=== PATIENT | female | born 1940 | race Caucasian/White ===

== ENCOUNTER 2017-11-04 14:48 | Inpatient (IN) | payer MEDICARE, OTHER ==
[2017-11-04 15:38] LABS: ADD MAN DIFF? NO
[2017-11-04 15:51] LABS: WHITE BLOOD COUNT 5.1 10^3/ul (4.8-10.8)
[2017-11-04 15:51] LABS: BASOPHIL # 0.1 10^3/ul (0.0-0.1); EOSINOPHILS % 0.6 % (0.0-7.0); HEMATOCRIT 34.8 % (37.0-47.0); HEMOGLOBIN 10.4 g/dl (12.0-16.0); LYMPHOCYTES # 0.7 10^3/ul (0.8-2.9); LYMPHOCYTES % 14.2 % (15.0-51.0); MEAN CORPUSCULAR HEMOGLOBIN 30.8 pg (29.0-33.0); MEAN CORPUSCULAR HGB CONC 29.9 g/dl (32.0-37.0); MONOCYTE # 0.5 10^3/ul (0.3-0.9); MONOCYTES % 10.3 % (0.0-11.0); NEUTROPHIL # 3.8 10^3/ul (1.6-7.5); NEUTROPHILS % 73.3 % (39.0-77.0); PLATELET COUNT 108 10^3/UL (140-415); RED BLOOD COUNT 3.38 10^6/ul (4.20-5.40); RED CELL DISTRIBUTION WIDTH 18.3 % (11.5-14.5)
[2017-11-04 15:58] LABS: ADD UMIC YES; UR ASCORBIC ACID NEGATIVE (NEGATIVE); UR BILIRUBIN (Dip) NEGATIVE (NEGATIVE); UR BLOOD (Dip) 1+ mg/dL (NEGATIVE); UR CLARITY SLIGHTLY CLOUDY (CLEAR); UR COLOR AMBER (YELLOW); UR GLUCOSE (Dip) NEGATIVE (NEGATIVE); UR KETONES (Dip) NEGATIVE (NEGATIVE); UR LEUKOCYTE ESTERASE (Dip) 1+ Leu/ul (NEGATIVE); UR NITRITE (Dip) NEGATIVE (NEGATIVE); UR RBC 0 /HPF (0-5); UR SPECIFIC GRAVITY (Dip) 1.019 (1.003-1.030); UR SQUAMOUS EPITHELIAL CELL FEW /HPF (FEW); UR TOTAL PROTEIN (Dip) 1+ mg/dl (NEGATIVE); UR TRANSITIONAL EPI CELL FEW /HPF (NONE SEEN); UR UROBILINOGEN (Dip) NEGATIVE (NEGATIVE); UR WBC 3 /HPF (0-5)
[2017-11-04 16:03] LABS: POSITIVE DIFF @See below
[2017-11-04 16:05] LABS: INR 1.26; PT RATIO 1.3
[2017-11-04 16:11] LABS: ALBUMIN 3.8 g/dl (3.3-4.9); ALKALINE PHOSPHATASE 66 IU/L (42-121); ANION GAP 15 (8-16); ASPARTATE AMINO TRANSFERASE 27 IU/L (15-46); BILIRUBIN,INDIRECT 0.6 mg/dl (0-1.1); BILIRUBIN,TOTAL 0.6 mg/dl (0.2-1.3); BLOOD UREA NITROGEN 30 mg/dl (7-20); CALCIUM 8.6 mg/dl (8.4-10.2); CARBON DIOXIDE 23 mmol/L (21-31); CHLORIDE 102 mmol/L (97-110); CREATININE 4.73 mg/dl (0.44-1.00); LIPASE 144 U/L (23-300); POTASSIUM 5.4 mmol/L (3.5-5.1); SODIUM 135 mmol/L (135-144)
[2017-11-04] MEDS: SOD CHLORIDE 0.9% 500 ML IV (16:12)
[2017-11-04 16:13] LABS: AADO2 Arterial 92.3 mmHg (7.0-24.0); Allen Test ACCEPTAB; Arterial Base Excess -1.3 mmol/L (-3.0-3); Arterial Blood Gas Oxygen Sat 90.7 mmHG (95.0-100.0); Arterial COHb 1.8 % (0.0-3.0); Arterial Fraction of Oxyhgb 88.9 % (93.0-99.0); Arterial HCO3 23.6 mmol/L (22.0-26.0); Arterial MetHb 0.2 % (0.0-1.5); Arterial Total Hemglobin 11.3 g/dl (12.0-18.0); Site Left Radial
[2017-11-04 16:16] LABS: TOTAL PROTEIN 8.5 g/dl (6.1-8.1)
[2017-11-04 16:19] LABS: ALANINE AMINOTRANSFERASE < 6 IU/L (13-69); GLUCOSE 38 mg/dl (70-220)
[2017-11-04] MEDS ORDERED: DEXTROSE 50% 50 ML SYRINGE ×2 (16:22)
[2017-11-04 16:23] LABS: TROPONIN-I 0.028 ng/ml (0.000-0.120)
[2017-11-04] MEDS: CEFTRIAXONE 1 GM/50 ML (PMX) 50 ML IVPB (16:30)
[2017-11-04] MEDS: DEXTROSE 50% 50 ML SYRINGE IV ×2 (17:00→17:05)
[2017-11-04] MEDS: SOD CHLORIDE 0.9% 1,000 ML IV (19:04)
[2017-11-04] MEDS ORDERED: MAGNESIUM HYDROXIDE 30ML CUP PO (19:30)
[2017-11-04] MEDS ORDERED: hydrALAzine 20 MG INJ IV (19:30)
[2017-11-04] MEDS ORDERED: DOCUSATE SODIUM 100 MG CAP PO (19:30)
[2017-11-04] MEDS ORDERED: NACL 0.9% 3 ML SYG IV (19:30)
[2017-11-04] MEDS: INSULIN ASPART [NOVOLOG] 3 ML PEN SC (21:00)
[2017-11-05] MEDS: INSULIN ASPART [NOVOLOG] 3 ML PEN SC ×5 (01:00→21:00)
[2017-11-05] MEDS: ACCU-CHEK XX (02:00)
[2017-11-05] MEDS ORDERED: PENDING SANTYL ORDER FOR WOUND CARE XX (05:00)
[2017-11-05 06:02] LABS: ADD MAN DIFF? NO
[2017-11-05 06:07] LABS: ABNORMAL IP MESSAGE 1; BASOPHILS % 0.9 % (0.0-2.0); EOSINOPHILS # 0.1 10^3/ul (0.0-0.5); EOSINOPHILS % 1.8 % (0.0-7.0); HEMATOCRIT 31.6 % (37.0-47.0); HEMOGLOBIN 9.5 g/dl (12.0-16.0); LYMPHOCYTES % 21.1 % (15.0-51.0); MEAN CORPUSCULAR HEMOGLOBIN 30.8 pg (29.0-33.0); MEAN CORPUSCULAR HGB CONC 30.1 g/dl (32.0-37.0); MEAN CORPUSCULAR VOLUME 102.6 fl (82.0-101.0); MEAN PLATELET VOLUME 11.4 fl (7.4-10.4); MONOCYTE # 0.6 10^3/ul (0.3-0.9); MONOCYTES % 12.4 % (0.0-11.0); NEUTROPHIL # 2.9 10^3/ul (1.6-7.5); NEUTROPHILS % 63.6 % (39.0-77.0); PLATELET COUNT 99 10^3/UL (140-415); RED BLOOD COUNT 3.08 10^6/ul (4.20-5.40); RED CELL DISTRIBUTION WIDTH 17.9 % (11.5-14.5)
[2017-11-05 06:07] LABS: WHITE BLOOD COUNT 4.5 10^3/ul (4.8-10.8)
[2017-11-05 06:20] LABS: POSITIVE DIFF @See below
[2017-11-05 06:46] LABS: ANION GAP 18 (8-16); BLOOD UREA NITROGEN 34 mg/dl (7-20); CALCIUM 8.4 mg/dl (8.4-10.2); CARBON DIOXIDE 21 mmol/L (21-31); CHLORIDE 103 mmol/L (97-110); CREATININE 5.51 mg/dl (0.44-1.00); GLUCOSE 96 mg/dl (70-220); MAGNESIUM 2.4 mg/dl (1.7-2.5); PHOSPHORUS 7.9 mg/dl (2.5-4.9); POTASSIUM 4.7 mmol/L (3.5-5.1); SODIUM 137 mmol/L (135-144)
[2017-11-05 07:45] LABS: FREE THYROXINE INDEX (Calc) 2.87 ug/ml (0.65-3.89); T3 UPTAKE 48.7 % (23.5-40.5); T4 (THYROXINE) 5.9 ug/dl (5.5-11.0)
[2017-11-05] MEDS: RANOLAZINE (SR) 500 MG TAB PO ×2 (09:45→21:12)
[2017-11-05] MEDS: SPIRONOLACTONE 25 MG TAB PO (10:35)
[2017-11-05] MEDS: NIFEdipine (XL) 30 MG TAB PO (10:36)
[2017-11-05 13:36] LABS: MODE ROOM AIR
[2017-11-05 13:55] LABS: ADD MAN DIFF? NO
[2017-11-05 14:00] LABS: ABNORMAL IP MESSAGE 1; BASOPHIL # 0.1 10^3/ul (0.0-0.1); BASOPHILS % 1.2 % (0.0-2.0); EOSINOPHILS # 0.1 10^3/ul (0.0-0.5); EOSINOPHILS % 1.7 % (0.0-7.0); HEMATOCRIT 32.3 % (37.0-47.0); HEMOGLOBIN 9.6 g/dl (12.0-16.0); LYMPHOCYTES % 23.6 % (15.0-51.0); MEAN CORPUSCULAR HEMOGLOBIN 31.2 pg (29.0-33.0); MEAN CORPUSCULAR HGB CONC 29.7 g/dl (32.0-37.0); MEAN CORPUSCULAR VOLUME 104.9 fl (82.0-101.0); MEAN PLATELET VOLUME 11.5 fl (7.4-10.4); MONOCYTE # 0.6 10^3/ul (0.3-0.9); NEUTROPHIL # 2.6 10^3/ul (1.6-7.5); PLATELET COUNT 99 10^3/UL (140-415); RED BLOOD COUNT 3.08 10^6/ul (4.20-5.40); RED CELL DISTRIBUTION WIDTH 17.6 % (11.5-14.5)
[2017-11-05 14:00] LABS: WHITE BLOOD COUNT 4.2 10^3/ul (4.8-10.8)
[2017-11-05 14:01] LABS: POSITIVE DIFF @See below
[2017-11-05] MEDS: PIPER-TAZO 2.25 GM (PMX) 50 ML IVPB ×2 (15:02→21:36)
[2017-11-05] MEDS: HEPARIN 5,000 UNIT/0.5 ML VIAL SC ×2 (15:10→21:00)
[2017-11-05] MEDS ORDERED: CEFTRIAXONE 1 GM/50 ML (PMX) 50 ML IVPB (16:30)
[2017-11-05] MEDS: SEVELAMER CARBONATE 800 MG TABLET PO (18:00)
[2017-11-05] MEDS: EPOETIN 10000 UNITS/1 ML INJ (ESRD) SC (18:01)
[2017-11-05 20:13] LABS: HEPATITIS B SURFACE ANTIGEN NEGATIVE (NEGATIVE)
[2017-11-05] MEDS: ATORVASTATIN 10 MG TAB PO (21:13)
[2017-11-05 22:11] LABS: HEPATITIS B SURFACE ANTIBODY NEGATIVE (NEGATIVE)
[2017-11-06] MEDS ORDERED: ACCU-CHEK XX (02:00)
[2017-11-06] MEDS: ACCU-CHEK XX (02:00)
[2017-11-06] MEDS: PIPER-TAZO 2.25 GM (PMX) 50 ML IVPB ×3 (05:38→21:03)
[2017-11-06] MEDS: ALBUMIN HUMAN 25% 100 ML IV (06:42)
[2017-11-06] MEDS: INSULIN ASPART [NOVOLOG] 3 ML PEN SC ×4 (08:00→21:13)
[2017-11-06] MEDS: HEPARIN 1000 UNITS/ML 10 ML INJ CATHETER (09:30)
[2017-11-06] MEDS: SEVELAMER CARBONATE 800 MG TABLET PO ×3 (10:44→18:00)
[2017-11-06] MEDS: NIFEdipine (XL) 30 MG TAB PO (10:44)
[2017-11-06] MEDS: RANOLAZINE (SR) 500 MG TAB PO ×2 (10:44→21:03)
[2017-11-06] MEDS: SPIRONOLACTONE 25 MG TAB PO (10:44)
[2017-11-06] MEDS: HEPARIN 5,000 UNIT/0.5 ML VIAL SC ×2 (10:49→21:07)
[2017-11-06 12:40] LABS: ANION GAP 15 (8-16); BLOOD UREA NITROGEN 26 mg/dl (7-20); CARBON DIOXIDE 24 mmol/L (21-31); CHLORIDE 102 mmol/L (97-110); GLUCOSE 171 mg/dl (70-220); POTASSIUM 4.4 mmol/L (3.5-5.1); SODIUM 137 mmol/L (135-144)
[2017-11-06] MEDS ORDERED: PIPER-TAZO 2.25 GM (PMX) 50 ML IVPB (14:00)
[2017-11-06] MEDS: COLLAGENASE 5 GM (UD JAR) TOP (19:51)
[2017-11-06] MEDS: ATORVASTATIN 10 MG TAB PO (21:04)
[2017-11-07] MEDS: ACCU-CHEK XX (02:00)
[2017-11-07] MEDS: PIPER-TAZO 2.25 GM (PMX) 50 ML IVPB ×2 (05:18→13:27)
[2017-11-07 05:55] LABS: ADD MAN DIFF? NO
[2017-11-07 05:57] LABS: WHITE BLOOD COUNT 3.4 10^3/ul (4.8-10.8)
[2017-11-07 05:57] LABS: ABNORMAL IP MESSAGE 1; BASOPHILS % 0.9 % (0.0-2.0); EOSINOPHILS # 0.1 10^3/ul (0.0-0.5); EOSINOPHILS % 2.7 % (0.0-7.0); HEMATOCRIT 33.6 % (37.0-47.0); HEMOGLOBIN 10.1 g/dl (12.0-16.0); LYMPHOCYTES # 0.8 10^3/ul (0.8-2.9); LYMPHOCYTES % 22.9 % (15.0-51.0); MEAN CORPUSCULAR HEMOGLOBIN 31.6 pg (29.0-33.0); MEAN CORPUSCULAR HGB CONC 30.1 g/dl (32.0-37.0); MEAN PLATELET VOLUME 11.2 fl (7.4-10.4); MONOCYTE # 0.4 10^3/ul (0.3-0.9); MONOCYTES % 11.9 % (0.0-11.0); NEUTROPHILS % 60.7 % (39.0-77.0); PLATELET COUNT 76 10^3/UL (140-415); RED CELL DISTRIBUTION WIDTH 16.7 % (11.5-14.5)
[2017-11-07 06:03] LABS: POSITIVE DIFF @See below
[2017-11-07 06:28] LABS: ANION GAP 15 (8-16); BLOOD UREA NITROGEN 32 mg/dl (7-20); CALCIUM 8.1 mg/dl (8.4-10.2); CARBON DIOXIDE 25 mmol/L (21-31); CHLORIDE 101 mmol/L (97-110); CREATININE 5.09 mg/dl (0.44-1.00); GLUCOSE 136 mg/dl (70-220); POTASSIUM 5.3 mmol/L (3.5-5.1); SODIUM 136 mmol/L (135-144)
[2017-11-07] MEDS: INSULIN ASPART [NOVOLOG] 3 ML PEN SC ×4 (08:00→21:00)
[2017-11-07] MEDS: SPIRONOLACTONE 25 MG TAB PO (08:50)
[2017-11-07] MEDS: RANOLAZINE (SR) 500 MG TAB PO ×2 (08:50→21:06)
[2017-11-07] MEDS: COLLAGENASE 5 GM (UD JAR) TOP (08:57)
[2017-11-07] MEDS: HEPARIN 5,000 UNIT/0.5 ML VIAL SC ×2 (08:57→21:14)
[2017-11-07] MEDS: SEVELAMER CARBONATE 800 MG TABLET PO ×3 (09:18→18:40)
[2017-11-07] MEDS ORDERED: GLUCAGON 1 MG INJ IM (17:00)
[2017-11-07] MEDS ORDERED: GLUCOSE GEL 15 GRAM TUBE BUCCAL (17:00)
[2017-11-07] MEDS ORDERED: GLUCOSE GEL 15 GRAM TUBE PO ×2 (17:00)
[2017-11-07] MEDS ORDERED: DEXTROSE 50% 50 ML SYRINGE IV ×2 (17:00)
[2017-11-07] MEDS: EPOETIN 10000 UNITS/1 ML INJ (ESRD) SC (18:38)
[2017-11-07] MEDS: ATORVASTATIN 10 MG TAB PO (21:06)
[2017-11-07] MEDS: HYDROCODONE/APAP (5/325) TAB PO (21:08)
[2017-11-08] MEDS: PIPER-TAZO 2.25 GM (PMX) 50 ML IVPB ×4 (01:10→21:51)
[2017-11-08] MEDS: ACCU-CHEK XX ×2 (02:00→21:52)
[2017-11-08] MEDS: INSULIN ASPART [NOVOLOG] 3 ML PEN SC ×4 (08:00→21:00)
[2017-11-08] MEDS: RANOLAZINE (SR) 500 MG TAB PO ×2 (09:00→21:46)
[2017-11-08] MEDS: COLLAGENASE 5 GM (UD JAR) TOP (09:00)
[2017-11-08] MEDS: SEVELAMER CARBONATE 800 MG TABLET PO ×3 (09:01→18:00)
[2017-11-08] MEDS: SPIRONOLACTONE 25 MG TAB PO (09:29)
[2017-11-08] MEDS: HEPARIN 5,000 UNIT/0.5 ML VIAL SC (09:38)
[2017-11-08] MEDS: ATORVASTATIN 10 MG TAB PO (21:46)
[2017-11-09] MEDS: HYDROCODONE/APAP (5/325) TAB PO ×3 (02:42→21:25)
[2017-11-09 05:52] LABS: ADD MAN DIFF? NO
[2017-11-09 05:58] LABS: WHITE BLOOD COUNT 3.8 10^3/ul (4.8-10.8)
[2017-11-09 05:58] LABS: ABNORMAL IP MESSAGE 1; BASOPHILS % 0.8 % (0.0-2.0); EOSINOPHILS # 0.1 10^3/ul (0.0-0.5); EOSINOPHILS % 2.4 % (0.0-7.0); HEMATOCRIT 33.1 % (37.0-47.0); HEMOGLOBIN 10.1 g/dl (12.0-16.0); LYMPHOCYTES # 0.8 10^3/ul (0.8-2.9); LYMPHOCYTES % 19.7 % (15.0-51.0); MEAN CORPUSCULAR HEMOGLOBIN 31.6 pg (29.0-33.0); MEAN CORPUSCULAR HGB CONC 30.5 g/dl (32.0-37.0); MEAN CORPUSCULAR VOLUME 103.4 fl (82.0-101.0); MONOCYTE # 0.4 10^3/ul (0.3-0.9); MONOCYTES % 10.2 % (0.0-11.0); NEUTROPHIL # 2.5 10^3/ul (1.6-7.5); NEUTROPHILS % 66.6 % (39.0-77.0); RED CELL DISTRIBUTION WIDTH 15.7 % (11.5-14.5)
[2017-11-09] MEDS: PIPER-TAZO 2.25 GM (PMX) 50 ML IVPB ×3 (06:05→21:49)
[2017-11-09 06:08] LABS: INR 1.18; PROTIME 15.2 Sec (11.9-14.9); PT RATIO 1.2
[2017-11-09 06:09] LABS: PARTIAL THROMBOPLASTIN TIME 32.3 Sec (25.0-35.0)
[2017-11-09 06:22] LABS: ALANINE AMINOTRANSFERASE 8 IU/L (13-69); ALBUMIN 3.5 g/dl (3.3-4.9); ALBUMIN/GLOBULIN RATIO 0.83; ALKALINE PHOSPHATASE 48 IU/L (42-121); ANION GAP 16 (8-16); ASPARTATE AMINO TRANSFERASE 14 IU/L (15-46); BILIRUBIN,INDIRECT 0.5 mg/dl (0-1.1); BILIRUBIN,TOTAL 0.5 mg/dl (0.2-1.3); BLOOD UREA NITROGEN 31 mg/dl (7-20); CALCIUM 8.4 mg/dl (8.4-10.2); CARBON DIOXIDE 26 mmol/L (21-31); CHLORIDE 97 mmol/L (97-110); CREATININE 4.92 mg/dl (0.44-1.00); GLUCOSE 123 mg/dl (70-220); POSITIVE DIFF @See below; POTASSIUM 4.6 mmol/L (3.5-5.1); SODIUM 134 mmol/L (135-144); TOTAL PROTEIN 7.7 g/dl (6.1-8.1)
[2017-11-09 06:23] LABS: PLATELET COUNT 68 10^3/UL (140-415)
[2017-11-09] MEDS: INSULIN ASPART [NOVOLOG] 3 ML PEN SC ×4 (08:00→21:00)
[2017-11-09] MEDS: COLLAGENASE 5 GM (UD JAR) TOP (08:42)
[2017-11-09] MEDS: SEVELAMER CARBONATE 800 MG TABLET PO ×3 (08:42→18:00)
[2017-11-09] MEDS: SPIRONOLACTONE 25 MG TAB PO (08:42)
[2017-11-09] MEDS: RANOLAZINE (SR) 500 MG TAB PO ×2 (08:42→21:23)
[2017-11-09] MEDS: HEPARIN 1000 UNITS/ML 10 ML INJ CATHETER (21:00)
[2017-11-09] MEDS: ATORVASTATIN 10 MG TAB PO (21:23)
[2017-11-09] MEDS: LORAZEPAM 2 MG INJ IV (21:25)
[2017-11-09] MEDS: ACCU-CHEK XX (21:49)
[2017-11-10] MEDS: PIPER-TAZO 2.25 GM (PMX) 50 ML IVPB ×2 (06:25→13:18)
[2017-11-10] MEDS: INSULIN ASPART [NOVOLOG] 3 ML PEN SC ×4 (08:00→21:00)
[2017-11-10] MEDS: SEVELAMER CARBONATE 800 MG TABLET PO ×3 (08:14→18:15)
[2017-11-10] MEDS: RANOLAZINE (SR) 500 MG TAB PO ×2 (09:36→21:00)
[2017-11-10] MEDS: COLLAGENASE 5 GM (UD JAR) TOP (09:36)
[2017-11-10 13:14] LABS: ADD MAN DIFF? NO
[2017-11-10 13:16] LABS: WHITE BLOOD COUNT 3.4 10^3/ul (4.8-10.8)
[2017-11-10 13:16] LABS: ABNORMAL IP MESSAGE 1; BASOPHILS % 0.9 % (0.0-2.0); EOSINOPHILS # 0.1 10^3/ul (0.0-0.5); EOSINOPHILS % 2.4 % (0.0-7.0); HEMATOCRIT 33.9 % (37.0-47.0); HEMOGLOBIN 10.2 g/dl (12.0-16.0); LYMPHOCYTES # 0.6 10^3/ul (0.8-2.9); LYMPHOCYTES % 17.6 % (15.0-51.0); MEAN CORPUSCULAR HEMOGLOBIN 30.9 pg (29.0-33.0); MEAN CORPUSCULAR HGB CONC 30.1 g/dl (32.0-37.0); MEAN CORPUSCULAR VOLUME 102.7 fl (82.0-101.0); MEAN PLATELET VOLUME 11.6 fl (7.4-10.4); MONOCYTE # 0.4 10^3/ul (0.3-0.9); MONOCYTES % 10.6 % (0.0-11.0); NEUTROPHIL # 2.3 10^3/ul (1.6-7.5); NEUTROPHILS % 67.9 % (39.0-77.0); PLATELET COUNT 66 10^3/UL (140-415); RED CELL DISTRIBUTION WIDTH 15.9 % (11.5-14.5)
[2017-11-10 13:30] LABS: POSITIVE DIFF @See below
[2017-11-10 13:36] LABS: INR 1.19; PROTIME 15.3 Sec (11.9-14.9); PT RATIO 1.2
[2017-11-10 13:40] LABS: CHOL/HDL RATIO 2.6 RATIO; CHOLESTEROL 89 mg/dl (100-200); HDL CHOLESTEROL 33 mg/dl (33-92); LDL CHOLESTEROL,CALCULATED 35 mg/dl; MAGNESIUM 2.3 mg/dl (1.7-2.5); TRIGLYCERIDES 107 mg/dl (0-149)
[2017-11-10 13:40] LABS: PHOSPHORUS 5.3 mg/dl (2.5-4.9)
[2017-11-10 13:41] LABS: ALANINE AMINOTRANSFERASE 7 IU/L (13-69); ALBUMIN 3.8 g/dl (3.3-4.9); ALBUMIN/GLOBULIN RATIO 0.82; ALKALINE PHOSPHATASE 51 IU/L (42-121); ANION GAP 16 (8-16); ASPARTATE AMINO TRANSFERASE 17 IU/L (15-46); BILIRUBIN,INDIRECT 0.6 mg/dl (0-1.1); BILIRUBIN,TOTAL 0.6 mg/dl (0.2-1.3); BLOOD UREA NITROGEN 19 mg/dl (7-20); CALCIUM 8.7 mg/dl (8.4-10.2); CARBON DIOXIDE 25 mmol/L (21-31); CHLORIDE 98 mmol/L (97-110); CREATININE 3.67 mg/dl (0.44-1.00); GLUCOSE 146 mg/dl (70-220); POTASSIUM 4.4 mmol/L (3.5-5.1); SODIUM 135 mmol/L (135-144); TOTAL PROTEIN 8.4 g/dl (6.1-8.1)
[2017-11-10 14:15] LABS: FREE T4 (FREE THYROXINE) 1.58 ng/dl (0.78-2.44)
[2017-11-10] MEDS: EPOETIN 10000 UNITS/1 ML INJ (ESRD) SC (18:16)
[2017-11-10] MEDS: PROPRANOLOL 20 MG TAB PO (21:00)
[2017-11-10] MEDS: ATORVASTATIN 10 MG TAB PO (21:00)
[2017-11-10] MEDS: ONDANSETRON 4 MG INJ IV (21:49)
[2017-11-11] MEDS: ACCU-CHEK XX (01:10)
[2017-11-11] MEDS: LEVOTHYROXINE 25 MCG TAB PO (05:30)
[2017-11-11 05:47] LABS: ADD MAN DIFF? NO
[2017-11-11 05:59] LABS: ABNORMAL IP MESSAGE 1; BASOPHILS % 0.8 % (0.0-2.0); EOSINOPHILS # 0.1 10^3/ul (0.0-0.5); EOSINOPHILS % 2.1 % (0.0-7.0); HEMATOCRIT 34.9 % (37.0-47.0); HEMOGLOBIN 10.5 g/dl (12.0-16.0); LYMPHOCYTES # 0.9 10^3/ul (0.8-2.9); LYMPHOCYTES % 18.4 % (15.0-51.0); MEAN CORPUSCULAR HEMOGLOBIN 31.3 pg (29.0-33.0); MEAN CORPUSCULAR HGB CONC 30.1 g/dl (32.0-37.0); MEAN CORPUSCULAR VOLUME 103.9 fl (82.0-101.0); MEAN PLATELET VOLUME 11.5 fl (7.4-10.4); MONOCYTE # 0.6 10^3/ul (0.3-0.9); MONOCYTES % 11.6 % (0.0-11.0); NEUTROPHIL # 3.2 10^3/ul (1.6-7.5); NEUTROPHILS % 66.7 % (39.0-77.0); RED BLOOD COUNT 3.36 10^6/ul (4.20-5.40); RED CELL DISTRIBUTION WIDTH 15.9 % (11.5-14.5)
[2017-11-11 05:59] LABS: WHITE BLOOD COUNT 4.7 10^3/ul (4.8-10.8)
[2017-11-11 06:12] LABS: PLATELET COUNT 84 10^3/UL (140-415); POSITIVE DIFF @See below
[2017-11-11 06:20] LABS: ANION GAP 16 (8-16); BLOOD UREA NITROGEN 25 mg/dl (7-20); CALCIUM 8.6 mg/dl (8.4-10.2); CARBON DIOXIDE 26 mmol/L (21-31); CHLORIDE 99 mmol/L (97-110); CREATININE 4.13 mg/dl (0.44-1.00); GLUCOSE 135 mg/dl (70-220); POTASSIUM 4.5 mmol/L (3.5-5.1); SODIUM 136 mmol/L (135-144)
[2017-11-11 06:36] LABS: MAGNESIUM 2.4 mg/dl (1.7-2.5)
[2017-11-11 06:36] LABS: PHOSPHORUS 6.4 mg/dl (2.5-4.9)
[2017-11-11] MEDS: INSULIN ASPART [NOVOLOG] 3 ML PEN SC ×4 (08:00→21:00)
[2017-11-11] MEDS: PROPRANOLOL 20 MG TAB PO ×2 (09:00→21:26)
[2017-11-11] MEDS: SEVELAMER CARBONATE 800 MG TABLET PO ×3 (10:02→18:03)
[2017-11-11] MEDS: RANOLAZINE (SR) 500 MG TAB PO ×2 (10:02→21:24)
[2017-11-11] MEDS: COLLAGENASE 5 GM (UD JAR) TOP (10:03)
[2017-11-11] MEDS: HEPARIN 1000 UNITS/ML 10 ML INJ CATHETER (19:13)
[2017-11-11] MEDS: ATORVASTATIN 10 MG TAB PO (21:24)
[2017-11-12] MEDS: ACCU-CHEK XX (02:00)
[2017-11-12] MEDS: LEVOTHYROXINE 25 MCG TAB PO (06:21)
[2017-11-12] MEDS: HYDROCODONE/APAP (5/325) TAB PO (06:23)
[2017-11-12 07:56] LABS: ADD MAN DIFF? NO
[2017-11-12 08:02] LABS: WHITE BLOOD COUNT 4.1 10^3/ul (4.8-10.8)
[2017-11-12 08:02] LABS: ABNORMAL IP MESSAGE 1; EOSINOPHILS # 0.1 10^3/ul (0.0-0.5); EOSINOPHILS % 1.9 % (0.0-7.0); HEMATOCRIT 32.9 % (37.0-47.0); HEMOGLOBIN 9.9 g/dl (12.0-16.0); LYMPHOCYTES # 0.7 10^3/ul (0.8-2.9); LYMPHOCYTES % 17.7 % (15.0-51.0); MEAN CORPUSCULAR HEMOGLOBIN 30.7 pg (29.0-33.0); MEAN CORPUSCULAR HGB CONC 30.1 g/dl (32.0-37.0); MEAN CORPUSCULAR VOLUME 102.2 fl (82.0-101.0); MEAN PLATELET VOLUME 11.9 fl (7.4-10.4); MONOCYTE # 0.5 10^3/ul (0.3-0.9); MONOCYTES % 11.9 % (0.0-11.0); NEUTROPHIL # 2.8 10^3/ul (1.6-7.5); PLATELET COUNT 62 10^3/UL (140-415); RED BLOOD COUNT 3.22 10^6/ul (4.20-5.40); RED CELL DISTRIBUTION WIDTH 15.6 % (11.5-14.5)
[2017-11-12 08:13] LABS: POSITIVE DIFF @See below
[2017-11-12 08:20] LABS: ALBUMIN 3.5 g/dl (3.3-4.9); ALBUMIN/GLOBULIN RATIO 0.79; ALKALINE PHOSPHATASE 53 IU/L (42-121); ANION GAP 14 (8-16); ASPARTATE AMINO TRANSFERASE 20 IU/L (15-46); BILIRUBIN,INDIRECT 0.4 mg/dl (0-1.1); BILIRUBIN,TOTAL 0.4 mg/dl (0.2-1.3); BLOOD UREA NITROGEN 18 mg/dl (7-20); CALCIUM 8.3 mg/dl (8.4-10.2); CARBON DIOXIDE 26 mmol/L (21-31); CHLORIDE 100 mmol/L (97-110); CREATININE 3.15 mg/dl (0.44-1.00); GLUCOSE 143 mg/dl (70-220); POTASSIUM 4.2 mmol/L (3.5-5.1); SODIUM 136 mmol/L (135-144); TOTAL PROTEIN 7.9 g/dl (6.1-8.1)
[2017-11-12 08:25] LABS: ALANINE AMINOTRANSFERASE < 6 IU/L (13-69)
[2017-11-12] MEDS: PROPRANOLOL 20 MG TAB PO ×2 (09:26→21:19)
[2017-11-12] MEDS: RANOLAZINE (SR) 500 MG TAB PO ×2 (09:26→22:43)
[2017-11-12] MEDS: SEVELAMER CARBONATE 800 MG TABLET PO ×3 (09:26→17:40)
[2017-11-12] MEDS: INSULIN ASPART [NOVOLOG] 3 ML PEN SC ×4 (09:34→21:00)
[2017-11-12 12:53] LABS: MAGNESIUM 2.3 mg/dl (1.7-2.5)
[2017-11-12 12:53] LABS: PHOSPHORUS 4.6 mg/dl (2.5-4.9)
[2017-11-12] MEDS: COLLAGENASE 5 GM (UD JAR) TOP (14:37)
[2017-11-12] MEDS: ATORVASTATIN 10 MG TAB PO (21:19)
[2017-11-12] MEDS: EPOETIN 10000 UNITS/1 ML INJ (ESRD) SC (21:20)
[2017-11-13] MEDS: ACCU-CHEK XX (02:00)
[2017-11-13] MEDS: LEVOTHYROXINE 25 MCG TAB PO (06:10)
[2017-11-13 06:39] LABS: ADD MAN DIFF? NO
[2017-11-13 06:45] LABS: WHITE BLOOD COUNT 4.3 10^3/ul (4.8-10.8)
[2017-11-13 06:45] LABS: ABNORMAL IP MESSAGE 1; BASOPHIL # 0.1 10^3/ul (0.0-0.1); BASOPHILS % 1.2 % (0.0-2.0); EOSINOPHILS # 0.1 10^3/ul (0.0-0.5); EOSINOPHILS % 2.8 % (0.0-7.0); HEMATOCRIT 33.9 % (37.0-47.0); HEMOGLOBIN 10.2 g/dl (12.0-16.0); LYMPHOCYTES # 0.9 10^3/ul (0.8-2.9); LYMPHOCYTES % 22.1 % (15.0-51.0); MEAN CORPUSCULAR HEMOGLOBIN 30.4 pg (29.0-33.0); MEAN CORPUSCULAR HGB CONC 30.1 g/dl (32.0-37.0); MEAN CORPUSCULAR VOLUME 100.9 fl (82.0-101.0); MEAN PLATELET VOLUME 11.6 fl (7.4-10.4); MONOCYTE # 0.5 10^3/ul (0.3-0.9); MONOCYTES % 11.5 % (0.0-11.0); NEUTROPHIL # 2.6 10^3/ul (1.6-7.5); NEUTROPHILS % 61.9 % (39.0-77.0); RED BLOOD COUNT 3.36 10^6/ul (4.20-5.40); RED CELL DISTRIBUTION WIDTH 15.7 % (11.5-14.5)
[2017-11-13 07:09] LABS: PHOSPHORUS 5.4 mg/dl (2.5-4.9)
[2017-11-13 07:09] LABS: MAGNESIUM 2.4 mg/dl (1.7-2.5)
[2017-11-13 07:10] LABS: PLATELET COUNT 87 10^3/UL (140-415); POSITIVE DIFF @See below
[2017-11-13 07:23] LABS: ANION GAP 15 (8-16); BLOOD UREA NITROGEN 24 mg/dl (7-20); CALCIUM 8.6 mg/dl (8.4-10.2); CARBON DIOXIDE 27 mmol/L (21-31); CHLORIDE 97 mmol/L (97-110); CREATININE 4.04 mg/dl (0.44-1.00); GLUCOSE 138 mg/dl (70-220); POTASSIUM 4.1 mmol/L (3.5-5.1); SODIUM 135 mmol/L (135-144)
[2017-11-13] MEDS: INSULIN ASPART [NOVOLOG] 3 ML PEN SC ×4 (08:49→20:21)
[2017-11-13] MEDS: COLLAGENASE 5 GM (UD JAR) TOP (08:50)
[2017-11-13] MEDS: RANOLAZINE (SR) 500 MG TAB PO ×2 (08:50→20:26)
[2017-11-13] MEDS: SEVELAMER CARBONATE 800 MG TABLET PO ×3 (08:50→18:00)
[2017-11-13] MEDS: PROPRANOLOL 20 MG TAB PO ×2 (09:00→20:28)
[2017-11-13] MEDS ORDERED: HEPARIN 1000 UNITS/ML 10 ML INJ CATHETER ×2 (16:30→17:00)
[2017-11-13] MEDS: ATORVASTATIN 10 MG TAB PO (20:26)
== END 2017-11-13 21:30 | disposition home health service (06) | DRG 917 ==
LOC: 5EC 11-12 06:42 → E/R 14:48 → 2NE 17:06
PROC: 5A1D70Z Performance of Urinary Filtration, Intermittent, Less than 6 Hours Per Day (ICD-10-PCS; principal; 2017-11-06)
DX: T38.3X1A Poisoning by insulin and oral hypoglycemic [antidiabetic] drugs, accidental (unintentional), initial encounter (principal); L89.153 Pressure ulcer of sacral region, stage 3; J69.0 Pneumonitis due to inhalation of food and vomit; N18.6 End stage renal disease; G92 Toxic encephalopathy; I12.0 Hypertensive chronic kidney disease with stage 5 chronic kidney disease or end stage renal disease; T82.898A Other specified complication of vascular prosthetic devices, implants and grafts, initial encounter; E11.649 Type 2 diabetes mellitus with hypoglycemia without coma; E11.22 Type 2 diabetes mellitus with diabetic chronic kidney disease; I48.0 Paroxysmal atrial fibrillation; Z95.810 Presence of automatic (implantable) cardiac defibrillator; E78.5 Hyperlipidemia, unspecified; D63.1 Anemia in chronic kidney disease; I25.10 Atherosclerotic heart disease of native coronary artery without angina pectoris; I49.5 Sick sinus syndrome; I95.9 Hypotension, unspecified; Z95.2 Presence of prosthetic heart valve; D69.6 Thrombocytopenia, unspecified
CPT/HCPCS: 36415; 36600; 70450; 71045; 76536; 80048; 80053; 80061; 81001; 82803; 82962; 83036; 83690; 83735; 84100; 84436; 84439; 84443; 84479; 84484; 85025; 85610; 85730; 86706; 87081; 87086; 87340; 90935; 93005; 93306; 93971; 96374; 97162; 99285-25